=== PATIENT | female | born 1970 | race African-American/Black ===

== ENCOUNTER → 2017-04-01 11:52 | Outpatient (POV) | payer MEDICARE, MEDICAID, SELFPAY ==
[2017-04-01 12:02] VITALS: BP 178/91; PULSE 100; O2SAT 98; BMI 41.1
--- NOTE | 2017-04-01 12:08 | HMH.PAINSOAP ---
[facility] Pain Management SOAP Note Subjective:: This patient is a pleasant 46-year-old -[place] female who is status post left SI joint injection under fluoroscopy with minimal relief. She does have an MRI that shows degenerative changes with bulging disc at L4-L5 and L3-L4. I do believe that she would benefit from a lumbar epidural steroid injection and this may be the source of her pain. We will seek approval and plan on a lumbar epidural steroid injection at L4-L5. Objective:: Alert and oriented ?3 in no acute distress. Patient has an antalgic gait. Tenderness over lower lumbar spine. Motor strength of the lower extremities is 5/5. There is no gross sensory deficit. Assessment:: Degenerative disc disease of lumbar spine with lumbar radiculopathy symptoms and bulging disc Plan:: We will seek approval and plan on lumbar epidural steroid injection at L4-L5 to see if this helps better with her pain symptoms.
== END ==
PROVIDERS: PCP Family Medicine; Visit Provider Anesthesiology
DX: M51.16 Intervertebral disc disorders with radiculopathy, lumbar region (principal)
CPT/HCPCS: 99212

== ENCOUNTER 2017-05-10 13:56 | Day surgery (SDC) | payer MEDICARE, MEDICAID, SELFPAY ==
[2017-05-10 14:13] VITALS: BP 147/76; PULSE 98; RESP 18; TEMP 36.6; BMI 41.1
[2017-05-10 14:28] LABS: POC Glucose,Bedside 229 mg/dL (70-110)
--- NOTE | 2017-05-10 14:54 | HMH.PMPROC ---
- Procedure Date: 05/10/17 Time: 14:54 Anesthesiologist:: Rafael Anderson MD Complications:: None Pre-procedure Diagnosis:: Degenerative disc disease of lumbar spine with lumbar radiculopathy symptoms and bulging disc Post-procedure Diagnosis:: Same Indications for Procedure:: This patient is a pleasant 47-year-old -[place] female who we are treating for low back pain and lumbar radicular symptoms. She has some increasing low back pain radiating to the left hip. We will do a lumbar epidural steroid injection to see if this will help her with her pain symptoms. Procedure Details:: Lumbar epidural steroid injection under fluoroscopy informed consent was obtained and the risk and benefits of the procedure was explained to the patient. The patient was taken to the procedure room. The patient was placed prone on the procedure table. The patient was prepped and draped in sterile fashion. C-arm fluoroscopy was used to view the lumbar spine. Skin and subcutaneous tissues were anesthetized using lidocaine. I placed an 18-gauge epidural needle and advanced into the L4-L5 interspace using fluoroscopic guidance and [id number] to air. After confirmation of needle placement in the epidural space with dye I injected 2 mL of lidocaine 1.5% with Depo-Medrol 80 mg. Patient tolerated the procedure well with no complications. Plan and Disposition:: We will follow-up with her in 2 weeks. We will reevaluate her symptoms at that time.
[2017-05-10 15:00] VITALS: BP 129/81; BP 138/78; PULSE 92; PULSE 93; RESP 18
--- NOTE | 2017-05-10 15:01 | P.PCN_ITS ---
- Procedure Date: 05/10/17 Time: 14:54 Anesthesiologist:: Rafael Anderson MD Complications:: None Pre-procedure Diagnosis:: Degenerative disc disease of lumbar spine with lumbar radiculopathy symptoms and bulging disc Post-procedure Diagnosis:: Same Indications for Procedure:: This patient is a pleasant 47-year-old -[place]namese female who we are treating for low back pain and lumbar radicular symptoms. She has some increasing low back pain radiating to the left hip. We will do a lumbar epidural steroid injection to see if this will help her with her pain symptoms. Procedure Details:: Lumbar epidural steroid injection under fluoroscopy informed consent was obtained and the risk and benefits of the procedure was explained to the patient. The patient was taken to the procedure room. The patient was placed prone on the procedure table. The patient was prepped and draped in sterile fashion. C-arm fluoroscopy was used to view the lumbar spine. Skin and subcutaneous tissues were anesthetized using lidocaine. I placed an 18-gauge epidural needle and advanced into the L4-L5 interspace using fluoroscopic guidance and [id number] to air. After confirmation of needle placement in the epidural space with dye I injected 2 mL of lidocaine 1.5 % with Depo-Medrol 80 mg. Patient tolerated the procedure well with no complications. Plan and Disposition:: We will follow-up with her in 2 weeks. We will reevaluate her symptoms at that time.
[2017-05-10 15:09] VITALS: BP 128/69; PULSE 94; RESP 18; TEMP 36.7; O2SAT 99
== END 2017-05-10 15:09 | disposition home or self-care (01) ==
PROVIDERS: PCP Family Medicine; Visit Provider Anesthesiology
DX: M51.16 Intervertebral disc disorders with radiculopathy, lumbar region (principal)
CPT/HCPCS: 62323; 82962; J1040; Q9966

== ENCOUNTER → 2017-05-20 08:48 | Outpatient (POV) | payer MEDICARE, MEDICAID, SELFPAY ==
[2017-05-20 09:05] VITALS: BP 200/116; PULSE 101; RESP 22; O2SAT 100; BMI 41.1
--- NOTE | 2017-05-20 09:16 | P.CONS_ITS ---
[facility] Pain Management SOAP Note Subjective:: This patient is a pleasant 47-year-old -[place] female who we are treating for low back pain with lumbar radicular symptoms. Most of her pain is in the left hip and anterior thigh. It radiates to the groin. She is tender over her left SI joint. She does have a positive Koko's test. She did not get any benefit from the last lumbar epidural steroid injection. I do believe she would benefit from a left SI joint injection under fluoroscopy. She is asking for pain medicine. She says she is taking ibuprofen and Tylenol which is not helping. She is also currently on Neurontin. I told her we will not prescribe her any oral narcotics at this time. Objective:: Alert and oriented ?3 in no acute distress. Patient has an antalgic gait. She is tender over the left SI joint. She does have a positive Koko's test. Motor strength of the lower extremities is 5/5 there is no gross sensory deficit Assessment:: Degenerative disc disease of lumbar spine with lumbar radiculopathy symptoms, bulging disc. Sacroiliitis Plan:: We will seek approval and plan on left SI joint injection under fluoroscopy.
== END ==
PROVIDERS: PCP Family Medicine; Visit Provider Anesthesiology
DX: M54.16 Radiculopathy, lumbar region (principal)
CPT/HCPCS: 99212

== ENCOUNTER → 2017-11-02 11:03 | Outpatient (CLI) | payer MEDICARE, MEDICAID, SELFPAY ==
--- NOTE | 2017-11-02 11:10 | XR_ITS ---
XR finger LT min 2V Ordering Physician: Terrell Scanlon MD Patient Age: 47 years: Female HISTORY: ITS.REASON: PAIN FOR LEFT THUMB nodule on the pulmonary surface of the thumb MCP joint. TECHNIQ UE: 3 views left thumb COMPARISON :Left hand 3 views December 2016 FINDINGS Hypertrophic developing arthritic changes again noted at IP joint of thumb. Unchanged since 2017. Again note marginal osteophytes most evident off the radial aspect of IP joint thumb. Stable minor arthritic changes and joint space narrowing otherwise at this joint The first MCP joint appears intact. Joint spaces well-maintained. Stable appearance to the Normal sesamoid along the medial anterior aspect of the first metacarpal head.- I doubt this is related to the palpable feature Regarding the palpable nodule on the palmar aspect of the thumb-. No discrete or unique findings are specifically seen in this area radiographically. (& The nodule was not marked on the skin) . A borderline narrowing at DIP joint index finger. What is seen at the wrist stable and unremarkable IMPRESSION: :......... 1. The MCP joint left thumb appears intact. Unchanged since 2017. Stable normal-appearing sesamoid overlying anterior medial aspect first metacarpal head... & Unlikely the palpable nodule in history 2.Regarding the palpable nodule on the palmar aspect of the thumb-. No discrete or unique findings are specifically seen in this area radiographically. (& The nodule was not marked on the skin) 3. Stable hypertrophic changes, & mild degenerative changes at the joint thumb
--- NOTE | 2017-11-02 11:11 | XR_ITS ---
XR shoulder LT min 2V Ordering Physician: Terrell Scanlon MD Patient Age: 47 years: Female HISTORY: ITS.REASON: LEFT ANTERIOR SHOULDER PAIN TECHNIQUE: 3 views left shoulder COMPARISON :09/27/2017 left shoulder . FINDINGS The left shoulder appears stable since 09/27/2017. The glenohumeral joint is intact. Humeral head and neck are intact. There is suggestion of mild degenerative changes AC joint. Also Minor widening and a what could reflect be some mild posttraumatic irregularity at the AC joint. Slight roughening of Contour distal clavicle, with trace spurring about the margins of the distal clavicle head. . Requires correlation is there history of old trauma . In either case features are unchanged since 09/27/2017. No new or additional findings. IMPRESSION: Stable mild degenerative changes at the AC joint. -Unchanged since September 27, 2017 Would note Subtle widening & slight irregular appearance AC joint which could reflect mild old traumatic changes here. Clinical correlation required. Otherwise negative left shoulder.
== END ==
PROVIDERS: PCP Family Medicine; Visit Provider Family Medicine
DX: M79.645 Pain in left finger(s) (principal); M25.512 Pain in left shoulder
CPT/HCPCS: 73030; 73140

== ENCOUNTER → 2017-12-04 10:53 | Outpatient (CLI) | payer MEDICARE, MEDICAID, SELFPAY ==
--- NOTE | 2017-12-04 10:54 | MR_ITS ---
MR shoulder LT wo con HISTORY:Shoulder pain with limited range of motion and probable abnormality along the top of the shoulder ITS.REASON: shoulder pain ORDERING PHYSICIAN: Paresh Brandon MD PATIENT AGE: 47 years Comparison: None TECHNIQUE: Standard multiplanar multiecho sequences are performed without contrast. FINDINGS: There are osteoarthritic changes of the acromioclavicular joint with bony reactive changes at the AC joint. There is a small amount of fluid in the sella acromial region. There is a loculated fluid collection superior to the AC joint measuring 3 cm transverse, 2 cm AP, and 1.4 cm cephalad to caudad. This is hypointense on T1 and hyperintense on T2. The signal characteristics are not typical for a hematoma. The collection is in direct continuity with the shoulder joint and could represent a bursal collection. Mild hypertrophic changes of the distal clavicle, some impingement upon the supraspinatus muscle. There is mild thickening of the supraspinatus and infraspinatus tendons with slight increased T2 signal consistent with tendinopathy/tendinosis. No definite tendon tear. There is thickening of the subscapularis tendon as well suggesting tendinopathy. The teres minor tendon is intact. Bicipital tendon is in place with a small amount fluid in the bicipital tendon sheath. No obvious labral tear. No fracture. IMPRESSION: 1. 3 x 2 cm septated fluid collection superior to the acromioclavicular joint possibly related to a bursal collection. This does not have typical characteristics of a hematoma 2. Acromioclavicular arthropathy. 3. Tendinopathy/tendinosis of the supraspinatus and infraspinatus tendons without obvious tendon tear
== END ==
PROVIDERS: PCP Family Medicine; Visit Provider Orthopaedic Surgery
DX: M75.100 Unspecified rotator cuff tear or rupture of unspecified shoulder, not specified as traumatic (principal)
CPT/HCPCS: 73221

== ENCOUNTER → 2017-12-16 09:51 | Outpatient (POV) | payer MEDICARE, MEDICAID, SELFPAY | PROVIDERS: PCP Family Medicine; Visit Provider Specialist | DX: R20.0 Anesthesia of skin (principal); R53.1 Weakness | CPT/HCPCS: 95886; 95908 ==

== ENCOUNTER 2021-10-15 14:50 | Emergency (ER) | payer MEDICARE, MEDICAID, SELFPAY ==
[2021-10-15] VITALS (17 sets, daily range): BP systolic 182–216; BP diastolic 86–172; PULSE 102–117; RESP 16–20; TEMP 36.6–36.8; O2SAT 97–100; BMI 38.6
[2021-10-15 15:08] LABS: Microscopic, Urine URINE MICROSCOPIC (MICROSCOPIC)
[2021-10-15 15:10] LABS: Appearance,Urine CLEAR (Clear); Bilirubin,Urine Negative (Negative); Blood, Urine TRACE-I (Negative); Color,Urine YELLOW (Yellow); Glucose,Urine (UA) 3+ (Negative); Ketones,Urine Negative (Negative); Leukocyte Esterase,Urine Negative (Negative); Nitrate,Urine Negative (Negative); PH,Urine 6.5 (5.0-8.5); Protein,Urine 3+ (Negative); Specific Gravity, Urine 1.025 (1.005-1.030); Urobilinogen,Urine 0.2 EU/dl (0.2)
[2021-10-15 15:24] LABS: Bacteria,Urine 1+ /lpf; Mucus,Urine Trace /lpf
[2021-10-15 15:25] LABS: Alanine Aminotransferase 29 U/L (12-78); Albumin Level 4.2 g/dl (3.5-5.0); Albumin/Globulin Ratio 1.2 (1.1-1.8); Alkaline Phosphatase 153 U/L (38-126); Anion Gap 10.2 mEq/L (5-15); Aspartate Amino Transferase 32 U/L (14-36); Bilirubin,Total 0.8 mg/dl (0.2-1.3); Blood Urea Nitrogen 3 mg/dl (7-17); Calcium 9.2 mg/dl (8.4-10.2); Carbon Dioxide 29 mmol/L (22.0-30.0); Chloride 102 mmol/L (98-107); Creatinine Clearance Estimated 148 mL/min (50-200); Estimated Glomerular Filt Rate 88 ml/min (>60); GFR (African American) 107 ML/MIN (>60); Globulin 3.5 g/dL (1.3-3.2); Glucose 324 mg/dl (74-100); Potassium 3.2 mmoL/L (3.5-5.1); Sodium 138 mmol/L (136-145); Total Protein,Serum 7.7 g/dl (6.3-8.2)
--- NOTE | 2021-10-15 15:33 | HMH.EDGENADL ---
ED Disposition Clinical Impression: Left flank pain Disposition: Home, Self-Care Condition on Discharge: Fair Instructions: DI for Flank Pain Additional Instructions: [place] as needed for pain. Zofran as needed for nausea. Follow-up with your primary care provider as soon as possible, call tomorrow to make appointment. Return to the emergency department if worsening or non-improving symptoms. Additional instructions for BACK PAIN: See your physician as soon as possible for further evaluation. Return immediately if back pain becomes intolerable, or if fever, numbness or weakness of your legs, loss of control of your bowels or bladder. Additional instructions for CONTROLLED SUBSTANCES: You have been prescribed a medication that is a controlled substance. Controlled substances include pain medications known as opiates and sedative nerve medications known as benzodiazepines. Tramadol, fioricet, and gabapentin are also controlled substances. Some common opiates include: Codeine (such as Tylenol #3) Hydrocodone (Vicodin, Lortab, Lorcet, [place]) Oxycodone (Percocet, Percodan, Oxycodone, Oxy IR) Some common benzodiazepines include: Diazepam (Valium) Lorazepam (Ativan) Alprazolam (Xanax) Clonazepam (Klonopin) Oxazepam (Serax) All of these controlled substances are highly addictive and frequently abused. Misuse can and frequently does lead to addiction as well as overdose and . Medication should be stored in a locked cabinet or other secure storage unit. Do not store the medication in a motor vehicle. Short term supplies, 3 days or less, are prescribed because of the highly addictive nature of the medication. Any of the controlled substance medication NOT taken should be disposed of properly and NOT SAVED. The recommended method of disposing of unused medications is: Place the medicines in a sealable plastic bag. If the medicine is a solid, crush it or add water to dissolve it. Add something undesirable (cat litter, coffee grounds, etc.) Dispose of sealed bag in household trash Do not flush or pour unused medicines down a sink or drain. Controlled substances should not be shared, given away or sold. Because of the addictive nature and frequent abuse, these medications are sometimes stolen. These medications should be kept in a safe place where they cannot be stolen. Do not keep them in your car or purse. Lost or stolen prescriptions for controlled substances WILL NOT BE REFILLED in this emergency department, regardless of whether a police report was filed. Prescriptions: Hydrocod/Acet 5/325 mg [[place] 5/325mg tablet] 1 tab PO Q6HP PRN #10 tab PRN Reason: Pain Transmission Status: Received by [id number] Ondansetron [Zofran 4mg ODT] 4 mg PO TIDP PRN #10 tab PRN Reason: Nausea And Vomiting Transmission Status: Received by [id number] Referrals: Sheila Reagan APRN [Primary Care Provider] - - Critical Care Critical Care Time: No Attestation: On 10/15/21, the high probability of a clinically significant, sudden or life threatening deterioration of the following system(s) required my full and direct attention, intervention and personal management. The time I documented below is in addition to time spent performing reported procedures but includes the following listed in this critical care notation. Medical Decision Making - Yuniel Inquiry Pt receiving controlled substance: Yes Yuniel was queried for this patient: Yes Risks and benefits of using a controlled substance: were discussed with pt by me Vital Signs: 10/15/21 14:51 10/15/21 15:50 10/15/21 16:02 Temperature 98.3 F Temperature Source Oral Pulse Rate 112 H 110 H Pulse Rate [Radial] 117 H Respiratory Rate 20 16 Blood Pressure 196/172 H Blood Pressure [Right Arm] 216/103 H Blood Pressure Mean 180 Blood Pressure Mean [Right Arm] 140 Blood Pressure Position [Right Arm] S
--- NOTE | 2021-10-15 15:44 | PC.NURSE ---
AUSTIN GUADARRAMA at bedside.
--- NOTE | 2021-10-15 15:45 | CT_ITS ---
PROCEDURE INFORMATION: Exam: CT Abdomen And Pelvis Without Contrast Exam date and time: 10/15/2021 3:52 PM Age: 51 years old Clinical indication: Abdominal pain; Generalized; Additional info: R/O stone TECHNIQUE: Imaging protocol: Computed tomography of the abdomen and pelvis without contrast. Radiation optimization: All CT scans at this facility use at least one of these dose optimization techniques: automated exposure control; mA and/or kV adjustment per patient size (includes targeted exams where dose is matched to clinical indication); or iterative reconstruction. COMPARISON: [facility] CT abdomen pelvis wo con 10/03/2017 5:55 AM FINDINGS: Liver: Normal. No mass. Gallbladder and bile ducts: Cholecystectomy. Pancreas: Normal. No ductal dilation. Spleen: Multiple calcified splenic granulomata. Adrenal glands: Normal. No mass. Kidneys and ureters: Normal. No hydronephrosis. Stomach and bowel: Unremarkable. No obstruction. No mucosal thickening. Appendix: No evidence of appendicitis. Intraperitoneal space: Unremarkable. No free air. No significant fluid collection. Vasculature: Moderate atherosclerotic changes are seen within the abdominal aorta and branch vasculature without evidence of aneurysm. Lymph nodes: Unremarkable. No enlarged lymph nodes. Urinary bladder: Unremarkable as visualized. Reproductive: Hysterectomy. Bones/joints: Unremarkable. No acute fracture. Soft tissues: Unremarkable. IMPRESSION: No acute findings.
--- NOTE | 2021-10-15 15:50 | PC.NURSE ---
gave pt blanket and re cycled vitals
[2021-10-15 16:16] LABS: Basophils % 0.3 % (0.1-2.0); Eosinophils # 0.4 K/mm3 (0.0-0.4); Eosinophils % 3.2 % (0.1-12.0); Hematocrit 43.7 % (37.0-47.0); Hemoglobin 15.4 g/dL (12.2-16.2); Lymphocytes # 2.3 K/mm3 (0.7-4.5); Lymphocytes % 16.4 % (10-50); Mean Corpuscular HGB Conc 35.3 g/dL (31.8-35.4); Mean Corpuscular Volume 79.2 fl (81-99); Mean Platelet Volume 8.3 fl (7.4-10.4); Monocytes # 0.5 K/mm3 (0.1-1.0); Monocytes % 3.9 % (1.7-9.3); Neutrophils # 10.5 K/mm3 (1.8-7.8); Neutrophils % 76.1 % (37.0-80.0); Platelet Count 312 K/mm3 (142-424); Red Blood Count 5.52 M/mm3 (4.20-5.40); Red Cell Distribution Width 14.2 % (11.5-17.5); White Blood Count 13.7 K/mm3 (4.8-10.8)
[2021-10-15 16:55] LABS: Lipase 254 U/L (23-300)
--- NOTE | 2021-10-15 17:55 | PC.NURSE ---
AUSTIN GUADARRAMA at bedside.
== END 2021-10-15 18:37 | disposition home or self-care (01) ==
PROVIDERS: Emergency Provider Emergency Medicine; PCP Nurse Practitioner Family
DX: R10.32 Left lower quadrant pain (principal); M54.50 Low back pain, unspecified; R11.2 Nausea with vomiting, unspecified; I10 Essential (primary) hypertension; E78.5 Hyperlipidemia, unspecified; E11.9 Type 2 diabetes mellitus without complications; M19.90 Unspecified osteoarthritis, unspecified site; D73.89 Other diseases of spleen; F17.210 Nicotine dependence, cigarettes, uncomplicated; Z79.4 Long term (current) use of insulin; Z79.84 Long term (current) use of oral hypoglycemic drugs; Z79.899 Other long term (current) drug therapy; Z88.1 Allergy status to other antibiotic agents; Z88.2 Allergy status to sulfonamides; Z88.3 Allergy status to other anti-infective agents; Z88.5 Allergy status to narcotic agent; Z88.6 Allergy status to analgesic agent; Z88.8 Allergy status to other drugs, medicaments and biological substances
CPT/HCPCS: 74176; 80053; 81001; 83690; 85025; 87086; 96361; 96374; 96375; 96376; 99285; J2405

== ENCOUNTER → 2021-11-08 08:49 | Outpatient (CLI) | payer MEDICARE, MEDICAID, SELFPAY ==
--- NOTE | 2021-11-08 08:58 | MR_ITS ---
FINAL REPORT CLINICAL HISTORY: RIGHT SHOULDER PAIN AFTER LIFTING SOMEONE OUT OF A TUB X FEW MONTHS AGO FINDINGS: Multiplanar MR imaging of the right shoulder was performed without contrast. There is a partial thickness articular surface tear of the supraspinatus tendon involving less than 50%. No full-thickness rotator cuff tear is identified. There is mild AC joint arthrosis. There is a small amount of fluid in the subacromial/subdeltoid bursa. The glenoid labrum is intact. There is an intrasubstance tear of the proximal long head of the biceps tendon. Small subchondral cysts are seen in the anterior humeral head. Moderate glenohumeral joint effusion is seen. There is no evidence of fracture or dislocation. The musculature is intact. There is no evidence of soft tissue mass. IMPRESSION: Partial-thickness articular surface tear of the supraspinatus tendon. Intrasubstance tear of the long head of the biceps tendon. Reviewed, Interpreted and Dictated by Momo Nair III, MD Transcribed by Leah Pavon Authenticated and [facility]
== END ==
PROVIDERS: PCP Nurse Practitioner Family; Visit Provider Orthopaedic Surgery Adult Reconstructive Orthopaedic Surgery
DX: M25.511 Pain in right shoulder (principal)
CPT/HCPCS: 73221

== ENCOUNTER → 2021-11-30 14:25 | Outpatient (CLI) | payer MEDICARE, MEDICAID, SELFPAY ==
[2021-11-30 14:38] LABS: Microscopic, Urine URINE MICROSCOPIC (MICROSCOPIC)
[2021-11-30 16:39] LABS: Basophils # 0.1 K/mm3 (0-0.2); Basophils % 0.5 % (0.1-2.0); Eosinophils # 0.3 K/mm3 (0.0-0.4); Eosinophils % 2.8 % (0.1-12.0); Hematocrit 44.6 % (37.0-47.0); Hemoglobin 15.1 g/dL (12.2-16.2); Lymphocytes # 1.9 K/mm3 (0.7-4.5); Lymphocytes % 17.3 % (10-50); Mean Corpuscular HGB Conc 33.9 g/dL (31.8-35.4); Mean Corpuscular Volume 82.6 fl (81-99); Mean Platelet Volume 9.1 fl (7.4-10.4); Monocytes # 0.4 K/mm3 (0.1-1.0); Monocytes % 3.3 % (1.7-9.3); Neutrophils # 8.3 K/mm3 (1.8-7.8); Neutrophils % 76.2 % (37.0-80.0); Platelet Count 313 K/mm3 (142-424); Red Cell Distribution Width 14.2 % (11.5-17.5); White Blood Count 10.9 K/mm3 (4.8-10.8)
[2021-11-30 17:32] LABS: Appearance,Urine CLEAR (Clear); Bilirubin,Urine Negative (Negative); Blood, Urine TRACE-I (Negative); Color,Urine YELLOW (Yellow); Glucose,Urine (UA) 2+ (Negative); Ketones,Urine Negative (Negative); Leukocyte Esterase,Urine 1+ (Negative); Nitrate,Urine Negative (Negative); Protein,Urine 3+ (Negative); Specific Gravity, Urine 1.025 (1.005-1.030); Urobilinogen,Urine 0.2 EU/dl (0.2)
[2021-11-30 17:47] LABS: Alanine Aminotransferase 20 U/L (12-78); Albumin Level 3.5 g/dl (3.5-5.0); Albumin/Globulin Ratio 1.3 (1.1-1.8); Alkaline Phosphatase 136 U/L (38-126); Anion Gap 15.1 mEq/L (5-15); Aspartate Amino Transferase 23 U/L (14-36); Bilirubin,Total 0.4 mg/dl (0.2-1.3); Blood Urea Nitrogen 6 mg/dl (7-17); Calcium 9.1 mg/dl (8.4-10.2); Carbon Dioxide 26 mmol/L (22.0-30.0); Chloride 99 mmol/L (98-107); Estimated Glomerular Filt Rate 76 ml/min (>60); GFR (African American) 92 ML/MIN (>60); Globulin 2.8 g/dL (1.3-3.2); Glucose 318 mg/dl (74-100); Potassium 4.1 mmoL/L (3.5-5.1); Sodium 136 mmol/L (136-145); Total Protein,Serum 6.3 g/dl (6.3-8.2)
[2021-11-30 18:45] LABS: Bacteria,Urine Trace /lpf
== END ==
PROVIDERS: PCP Nurse Practitioner Family; Visit Provider Orthopaedic Surgery Adult Reconstructive Orthopaedic Surgery
DX: Z01.812 Encounter for preprocedural laboratory examination (principal); Z20.822 Contact with and (suspected) exposure to COVID-19; M75.101 Unspecified rotator cuff tear or rupture of right shoulder, not specified as traumatic
CPT/HCPCS: 36415; 80053; 81001; 85025; 87086; C9803; U0003; U0005

== ENCOUNTER → 2022-02-19 11:29 | Outpatient (CLI) | payer MEDICARE, MEDICAID, SELFPAY ==
--- NOTE | 2022-02-19 11:48 | ECG_ITS ---
APPROVED REPORT Exam: Resting ECG HR:94 bpm ECG Measurements Heart Rate 94 AXES UT 160 P 69 QRSd 102 QRS -33 QT 366 T 47 QTc 418 Conclusion SINUS RHYTHM Left atrial abnormality Old anteroseptal changes ABNORMAL ECG UNCONFIRMED REPORT Electronically signed by : Terrell Prater MD 02/19/2022 12:13:58
--- NOTE | 2022-02-19 12:06 | XR_ITS ---
FINAL REPORT CLINICAL HISTORY: Chronic cough, smoker FINDINGS: Two views of the chest were obtained. The heart size and pulmonary vascularity are within normal limits. The mediastinum is normal. No acute pulmonary abnormality is identified. There is no pneumothorax. The bony thorax is intact. IMPRESSION: No active cardiopulmonary disease. Reviewed, Interpreted and Dictated by Momo Nair III, MD Transcribed by Janeth Mcdonald Authenticated and [facility]
[2022-02-19 12:10] LABS: Microscopic, Urine URINE MICROSCOPIC (MICROSCOPIC)
[2022-02-19 13:19] LABS: Basophils # 0.1 K/mm3 (0-0.2); Basophils % 0.8 % (0.1-2.0); Eosinophils # 0.5 K/mm3 (0.0-0.4); Hematocrit 45.5 % (37.0-47.0); Hemoglobin 15.3 g/dL (12.2-16.2); Lymphocytes # 2.3 K/mm3 (0.7-4.5); Lymphocytes % 24.2 % (10-50); Mean Corpuscular HGB Conc 33.7 g/dL (31.8-35.4); Mean Corpuscular Hemoglobin 27.5 pg (27.0-31.2); Mean Corpuscular Volume 81.8 fl (81-99); Mean Platelet Volume 9.1 fl (7.4-10.4); Monocytes # 0.4 K/mm3 (0.1-1.0); Monocytes % 3.9 % (1.7-9.3); Neutrophils # 6.3 K/mm3 (1.8-7.8); Neutrophils % 66.2 % (37.0-80.0); Platelet Count 360 K/mm3 (142-424); Red Blood Count 5.56 M/mm3 (4.20-5.40); Red Cell Distribution Width 13.9 % (11.5-17.5); White Blood Count 9.5 K/mm3 (4.8-10.8)
[2022-02-19 14:57] LABS: Appearance,Urine CLEAR (Clear); Bilirubin,Urine Negative (Negative); Blood, Urine TRACE-I (Negative); Color,Urine YELLOW (Yellow); Glucose,Urine (UA) Negative (Negative); Ketones,Urine Negative (Negative); Leukocyte Esterase,Urine 3+ (Negative); Nitrate,Urine Negative (Negative); Protein,Urine 1+ (Negative); Urobilinogen,Urine 0.2 EU/dl (0.2)
[2022-02-19 15:29] LABS: Bacteria,Urine 1+ /lpf; RBC,Urine Occasional #/hpf (0-3)
[2022-02-19 16:06] LABS: Chloride 101 mmol/L (98-107); Sodium 137 mmol/L (136-145)
[2022-02-19 16:08] LABS: Blood Urea Nitrogen 10 mg/dl (7-17); Estimated Glomerular Filt Rate 52 ml/min (>60); GFR (African American) 63 ML/MIN (>60)
[2022-02-19 16:09] LABS: Alanine Aminotransferase 20 U/L (12-78); Albumin Level 3.9 g/dl (3.5-5.0); Albumin/Globulin Ratio 1.3 (1.1-1.8); Alkaline Phosphatase 133 U/L (38-126); Aspartate Amino Transferase 19 U/L (14-36); Bilirubin,Total 0.7 mg/dl (0.2-1.3); Carbon Dioxide 27 mmol/L (22.0-30.0); Globulin 2.9 g/dL (1.3-3.2); Total Protein,Serum 6.8 g/dl (6.3-8.2)
[2022-02-19 16:10] LABS: Calcium 9.8 mg/dl (8.4-10.2); Glucose 298 mg/dl (74-100)
== END ==
PROVIDERS: PCP Nurse Practitioner Family; Visit Provider Orthopaedic Surgery Adult Reconstructive Orthopaedic Surgery
DX: Z01.818 Encounter for other preprocedural examination (principal); M75.121 Complete rotator cuff tear or rupture of right shoulder, not specified as traumatic; R82.90 Unspecified abnormal findings in urine
CPT/HCPCS: 36415; 71046; 80053; 81001; 85025; 87086; 93005